=== PATIENT | female | born 1985 | race Caucasian/White ===

== ENCOUNTER → 2018-04-03 | Outpatient (REF) | payer OTHER ==
[2018-04-05 14:15] LABS: HPV HYBRID CAPTURE II Negative (Negative)
== END ==
LOC: M LAB REF 18:24
DX: Z12.4 Encounter for screening for malignant neoplasm of cervix (principal); N76.0 Acute vaginitis
CPT/HCPCS: G0123

== ENCOUNTER 2018-09-21 20:57 | Emergency (ER) | payer BC ==
[~2018-09-21] VITALS: Ht 162.6 cm; Wt 54.5 kg
[2018-09-21 21:51] LABS: BASO % 0.6 % (0.0-1.0); EOS # 0.1 10^3/uL (0.0-0.50); EOS % 1.5 % (0.0-3.0); HEMATOCRIT 36.8 % (36.0-47.0); HEMOGLOBIN 12.7 g/dl (12.0-15.5); LYMPH # 2.1 10^3/uL (1.5-4.5); LYMPH % 30.6 % (24.0-44.0); MEAN CORPUSCULAR HEMOGLOBIN 32.6 pg (27.0-33.0); MEAN CORPUSCULAR HGB CONC 34.5 g/dl (32.0-36.5); MEAN CORPUSCULAR VOLUME 94.6 fl (80.0-96.0); MONO # 0.5 10^3/uL (0.0-0.8); MONO % 7.6 % (0.0-5.0); NEUTROPHILS % 59.4 % (36.0-66.0); PLATELET COUNT, AUTOMATED 225 10^3/uL (150-450); RED BLOOD COUNT 3.89 10^6/uL (4.00-5.40); WHITE BLOOD COUNT 6.7 10^3/uL (4.0-10.0)
--- NOTE | 2018-09-21 23:13 | REPVR ---
EXAM: US First Trimester, Transabdominal EXAM DATE/TIME: 09/21/2018 10:50 PM CLINICAL HISTORY: 32 years old, female; complicated by abdominal or pelvic pain; Left lower quadrant; First trimester; Gestational age or lmp: 08/13/18; ; Additional info: Rlq/r adnexal pain TECHNIQUE: Imaging protocol: Real-time transabdominal obstetrical ultrasound of the maternal pelvis and a first trimester , less than 14 weeks 0 days, with image documentation. COMPARISON: No relevant prior studies available. FINDINGS: GESTATION: Gestation: Gestational sac demonstrated in the uterine fundus with an average sac diameter of 9.1 mm. No pole demonstrated. 2.3 mm yolk sac demonstrated. Heart rate: No cardiac activity demonstrated. Placenta: Unremarkable. No subchorionic bleed. Amniotic fluid: Amniotic and chorionic fluid are normal for gestational age. BIOMETRY: Estimated gestational age: 5 weeks 5 days based on sac size MATERNAL: Uterus: Uterus measures 10.9 x 5.1 x 6.3 cm. Cervix: Unremarkable. Right adnexa: Right ovary measures 3 x 2.3 x 2.6 cm. Corpus luteum in the right ovary measures 1.1 x 0.8 x 1.1 cm. Normal resistive index. Left adnexa: Left ovary obscured by overlying bowel gas. Intraperitoneal: No intraperitoneal free fluid. IMPRESSION: Solitary gestational sac without evidence of a pole or cardiac activity. Gestational age estimated at 5.5 weeks which correlates with LMP. Followup recommended to document the presence of a pole and cardiac activity. Followup beta-hCG levels may be necessary depending upon clinical evaluation. Electronically signed by: Cristian Pop On 09/21/2018 23:13:09 PM
[2018-09-22 00:01] VITALS: BP 104/56
== END 2018-09-22 00:18 | disposition home or self-care (01) ==
LOC: M ED 20:57
DX: O20.0 Threatened abortion (principal); Z3A.01 Less than 8 weeks gestation of pregnancy

== ENCOUNTER → 2018-09-24 | Outpatient (CLI) | payer BC | LOC: M LAB 11:36 | PROVIDERS: ATTEND Obstetrics & Gynecology | DX: O20.0 Threatened abortion (principal); Z3A.00 Weeks of gestation of pregnancy not specified ==

== ENCOUNTER → 2018-09-26 | Outpatient (CLI) | payer BC | LOC: M WUC 18:19 | PROVIDERS: ATTEND Advanced Practice Midwife | DX: O20.0 Threatened abortion (principal) ==

== ENCOUNTER → 2018-12-26 | Outpatient (CLI) | payer BC ==
--- NOTE | 2018-12-26 20:56 | REP ---
Obstetric sonography: History: Supervision of for anatomy. Findings: Scanning through the gravid uterus demonstrates a viable single intrauterine gestation in a cephalic lie. motion is observed and heart rate is recorded at 152 beats per minute. A posterior fundal placenta is seen grade 1 without evidence of previa or abruption. Amniotic fluid is subjectively normal. Closed cervical length measured transvaginally is 2.7 cm. No extrauterine abnormalities observed. Incidental note is made of a 1.4 x 1.3 x 0.5 cm vaginal wall cyst. There are small bilateral choroid plexus cysts. An echogenic focus is seen in the left ventricle likely chordae tendineae. No other abnormality is observed. Facial profile is seen but nose and lips are less than optimally seen due to position. The following additional anatomic structures are identified and felt to be sonographically unremarkable: cranium, cavum, cerebellum and posterior fossa, lungs, left and right ventricular outflow tract views, diaphragm, left-sided stomach, abdominal wall cord insertion, three-vessel umbilical cord, kidneys and bladder, spine, upper and lower extremities. Biometry chart: BPD 4.3 cm = 19 weeks 0 days HC 15.8 cm = 18 weeks 5 days AC 14.3 cm = 19 weeks 4 days FL 2.7 cm = 18 weeks 2 days HL 2.7 cm = 18 weeks 3 days HC/AC ratio normal 1.11. Cephalic index normal 0.76. Estimated weight 268 grams, 0 pounds 9 ounces, 74th percentile for 18 weeks 2 days. Impression: Viable single intrauterine gestation at 18 weeks 6 days by today's composite sonographic criteria. ILDA by today's sonography May 23, 2019. Bilateral small choroid plexus cysts. nose and lips less than optimally seen. Echogenic focus in the left ventricle. Incidental vaginal wall cyst seen during transvaginal scanning of the maternal cervix. Electronically Signed by Chaparro Rodriguez MD 12/26/2018 09:20 P
== END ==
LOC: M RAD 15:57
PROVIDERS: ATTEND Advanced Practice Midwife
DX: Z36.89 Encounter for other specified antenatal screening (principal); Z3A.18 18 weeks gestation of pregnancy

== ENCOUNTER 2019-01-26 19:46 | Emergency (ER) | payer BC ==
[~2019-01-26] VITALS: Ht 162.6 cm; Wt 59.1 kg
[2019-01-26] MEDS ORDERED: NS 1,000 ML IV ONE (20:15)
[2019-01-26 20:38] LABS: BASO % 0.2 % (0.0-1.0); EOS # 0.1 10^3/uL (0.0-0.5); EOS % 0.6 % (0.0-3.0); HEMATOCRIT 35.3 % (36.0-47.0); LYMPH # 1.4 10^3/uL (1.5-5.0); LYMPH % 16.7 % (24.0-44.0); MEAN CORPUSCULAR HEMOGLOBIN 32.7 pg (27.0-33.0); MEAN CORPUSCULAR VOLUME 96.2 fl (80.0-96.0); MONO # 0.5 10^3/uL (0.0-0.8); NEUTROPHILS # 6.4 10^3/uL (1.5-8.5); NEUTROPHILS % 75.8 % (36.0-66.0); PLATELET COUNT, AUTOMATED 217 10^3/uL (150-450); RED BLOOD COUNT 3.67 10^6/uL (4.00-5.40); WHITE BLOOD COUNT 8.4 10^3/uL (4.0-10.0)
[2019-01-26 21:01] LABS: BLOOD UREA NITROGEN 7 MG/DL (7-18); CALCIUM LEVEL 8.6 MG/DL (8.5-10.1); CARBON DIOXIDE LEVEL 23 MEQ/L (21-32); CHLORIDE LEVEL 108 MEQ/L (98-107); CREATININE FOR GFR 0.45 MG/DL (0.55-1.30); GLOMERULAR FILTRATION RATE > 60.0 (>60); GLUCOSE, FASTING 89 MG/DL (70-100); SODIUM LEVEL 140 MEQ/L (136-145)
[2019-01-26 22:00] VITALS: BP 100/66
--- NOTE | 2019-01-27 05:57 | ECGEPIP ---
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
== END 2019-01-26 22:25 | disposition home or self-care (01) ==
LOC: M ED 19:46
DX: O99.89 Other specified diseases and conditions complicating pregnancy, childbirth and the puerperium (principal); R06.09 Other forms of dyspnea; Z3A.23 23 weeks gestation of pregnancy; Z87.59 Personal history of other complications of pregnancy, childbirth and the puerperium

== ENCOUNTER → 2019-01-28 | Outpatient (CLI) | payer BC ==
--- NOTE | 2019-01-29 04:30 | REP ---
Clinical: Anatomical evaluation. Comparison: 12/26/2018 . Findings: Examination demonstrates a single live intrauterine in cephalic presentation. motion is identified by technologist. Placenta is noted posterior and grade zero without evidence for placenta previa or abruption. Amniotic fluid volume is normal. Cervix measures 3.0 cm in length and appears closed. No evidence for nuchal cord. Gestational age by LMP 23 weeks 0 days with ILDA 05/27/2019 . Gestational age by current measurements 24 weeks 3 days with ILDA 05/17/2019 . FHR equals 136 beats per minute. Estimated weight 682 grams ( 88th percentile). Anatomical assessment demonstrates normal structures including cranium, choroid plexus, cavum, cerebellum/posterior fossa, facial features, lungs, cardiac ventricular outflow tracts, diaphragm, stomach, cord insertion/three-vessel cord, kidneys/bladder, spine, and extremities. Four-chamber heart view demonstrates echogenic focus in the left cardiac ventricle suggesting prominent chordae tendineae. Impression: 1. Single live intrauterine in cephalic presentation demonstrating appropriate interval growth. 2. Anatomical assessment is complete and essentially normal as described above. Suspected prominent chordae tendineae in the left cardiac ventricle. Electronically Signed by Jose Ramon Gallagher MD 01/29/2019 04:21 A
== END ==
LOC: M RAD 16:22
PROVIDERS: ATTEND Obstetrics & Gynecology
DX: Z34.82 Encounter for supervision of other normal pregnancy, second trimester (principal); Z3A.23 23 weeks gestation of pregnancy

== ENCOUNTER → 2019-02-20 | Outpatient (CLI) | payer BC ==
[2019-02-20 14:48] LABS: HEMOGLOBIN 11.7 g/dl (12.0-15.5); MEAN CORPUSCULAR HEMOGLOBIN 33.1 pg (27.0-33.0); MEAN CORPUSCULAR HGB CONC 33.4 g/dl (32.0-36.5); MEAN CORPUSCULAR VOLUME 99.2 fl (80.0-96.0); PLATELET COUNT, AUTOMATED 192 10^3/uL (150-450); RED BLOOD COUNT 3.53 10^6/uL (4.00-5.40); WHITE BLOOD COUNT 7.2 10^3/uL (4.0-10.0)
== END ==
LOC: M LAB 13:00
PROVIDERS: ATTEND Obstetrics & Gynecology
DX: Z34.82 Encounter for supervision of other normal pregnancy, second trimester (principal)

== ENCOUNTER → 2019-04-05 | Outpatient (CLI) | payer BC ==
--- NOTE | 2019-04-05 12:01 | REP ---
OB ULTRASOUND: Real-time sonographic evaluation of the gravid uterus is performed utilizing transabdominal and endovaginal technique. There is a single living intrauterine gestation. The estimated gestational age is 32 weeks 4 days, EDC 05/27/2019. Today's measurements indicate appropriate growth. BPD 81 mm = 32 weeks 5 days, 52nd percentile HC 300 mm = 33 weeks 1 day, 59th percentile AC 288 mm = 32 weeks 6 days, 53rd percentile Femur length 62 mm = 32 weeks 1 day, 44th percentile HC/AC ratio 1.04 within normal range. Estimated weight 2020 grams, 45th percentile. Cervix is closed and measures 1.0 cm in length on transvaginal imaging. heart rate 144 beats per minute. Amniotic fluid is mildly oligohydramnios. LUIS is 7.1 below normal range of 8.4-24.4. Biophysical profile score 8 out of 8. S/D ratio 2.17 below normal range of 2.2 to 3.2. RI 0.54 below normal range of 0.59-0.75. Visualized anatomy includes lateral ventricles, four chamber heart, ventricular outflow tracts, stomach, three vessel cord, kidneys, and bladder which are all grossly unremarkable except for an echogenic focus in the left ventricle of the heart likely related to chordae tendineae. position vertex. Placenta posterior and grade 1 with no previa or abruption. Electronically Signed by Marcus Harley MD 04/08/2019 09:13 A
== END ==
LOC: M RAD 09:04
PROVIDERS: ATTEND Obstetrics & Gynecology
DX: O26.843 Uterine size-date discrepancy, third trimester (principal); Z3A.32 32 weeks gestation of pregnancy

== ENCOUNTER → 2019-04-30 | Outpatient (REF) | payer BC | LOC: M SFHCWAGY 12:43 | PROVIDERS: ATTEND Obstetrics & Gynecology | DX: Z34.93 Encounter for supervision of normal pregnancy, unspecified, third trimester (principal); Z36.85 Encounter for antenatal screening for Streptococcus B ==

== ENCOUNTER 2019-05-17 18:20 | Inpatient (IN) | payer BC ==
[~2019-05-17] VITALS: Ht 162.6 cm; Wt 72.1 kg
[2019-05-17 18:39] VITALS: BP 104/61
[2019-05-17] MEDS ORDERED: LACTATED RINGER'S 1000 ML IV STA (19:27)
--- NOTE | 2019-05-17 19:44 | HPEPDOC ---
Obstetrical History & Physical General Date of Admission May 17, 2019 at 19:22 History of Present Illness Chief Complaint: Contractions, term Information Provided By: Patient Age: 33 : 3 Term: 1 Pre-term: 0 Abortions: 1 Livin Care Care: Good Care Dating Final EDC: May 27, 2019 Final EDC by: 1st trimester (US) EGA at Admission: 38 (+2) Antepartum Course Height (inches): 64 Pre- weight (lbs.): 120 Admission Weight (lbs.): 156 Past Medical History Past Obstetrical History : Past Obstetrical History: Primgravida (2011) Type of Delivery: Spontaneous Vaginal Del. 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 BREAST: . ABDOMEN: Gravid and non-tender to touch. FETUS: Is vertex (VTX) by sterile vaginal examination (SVE), fetus is vertex (VTX) by Ren. HEART RATE: Regular rate and rhythm. LUNGS: Clear to auscultation (CTA). EXTREMITIES: No edema. No clonus. Deep tendon reflexes (DTRs) + 2. Vital Signs/I&O Vital Signs Date Time Temp Pulse Resp B/P (MAP) Pulse Ox O2 Delivery O2 Flow Rate FiO2 05/17/19 18:39 97.8 86 104/61 (75) Laboratory Data 24H LABS Laboratory Tests 2 05/17/19 19:28: Serology Scanned Report Hepatitis B Testing Pertinent Laboratoy Data Blood Type: A+ RBC Antibody Screen: Negative HIV: Negative Hepatitis B: Negative Hepatitis C: Negative Rapid Plasma Reagin: Nonreactive Rubella: Immune Chlamydia/Gonorrhea: Negative Group B Streptococcus: Negative Quad Screen Test: Declined Glucose Tolerance Test: 89 Anatomy Ultrasound Ultrasound Date: Dec 26, 2018 Placenta Location: Posterior Normal Anatomy: Yes Placenta Previa: No Estimated Weight (grams): 268 (74%) Other Ultrasounds 10/01/18 Dating 6w0d ILDA 05/27/19 10/16/18 spotting, no subchorionic hemorrhage 01/28/19 f/u anatomy. EFW 682 88%, echogenic cardiac foci, otherwise normal anatomy Steroid Therapy Steroid Therapy: No Vaginal Examination Dilation: 5 cm (-6) Effacement: 90% Station: -1 Cervical Consistency: Soft Cervical Position: Middle Presentation: Cephalic presentation Assessment Heart Rate (FHR): 145 Variability: Moderate Accelerations: Positive Decelerations: None Tocometer Contractions: Yes Frequency: every 3-7 min. Duration: greater than 60 seconds Strength: palpated as moderate Assessment/Plan Assessment Glo is a 33-year-old (G)3 para (P)1-0-1-1 at 38+4 weeks by 6-week ultrasound. Presents to Labor and Delivery (L&D) with complaints of UC since 1500. Denies LOF or bleeding. Fetus is active. 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 Diet: clear liquids. Group B Streptococcus (GBS) negative. Labs and intravenous (IV) per unit protocol. Counseled on Pitocin and induction of labor (IOL). Lactated Ringers (LR): Bolus 500 mL, then at saline lock. Pt plans epidural Anticipate normal spontaneous delivery (). C-S as appropriate. Glo Vanegas CNM May 17, 2019 19:44
[2019-05-17 19:52] VITALS: BP 111/70
[2019-05-17 19:53] LABS: HEMATOCRIT 35.8 % (36.0-47.0); HEMOGLOBIN 11.7 g/dl (12.0-15.5); MEAN CORPUSCULAR HGB CONC 32.7 g/dl (32.0-36.5); PLATELET COUNT, AUTOMATED 212 10^3/uL (150-450); RED BLOOD COUNT 3.77 10^6/uL (4.00-5.40); WHITE BLOOD COUNT 6.1 10^3/uL (4.0-10.0)
[2019-05-17 20:40] VITALS: BP 101/56
[2019-05-17 22:12] VITALS: BP 108/60
[2019-05-18] VITALS (14 sets, daily range): BP systolic 83–123; BP diastolic 50–64
[2019-05-18] MEDS ORDERED: FENTANYL 2MCG/ML ROPIVACAINE 0.2% IN 0.9% NACL 100ML IVBAG As Ordered ONE (00:03)
[2019-05-18] MEDS ORDERED: diphenhydrAMINE INJ 50MG/ML VIAL (J1200) IV PRN (02:15)
[2019-05-18] MEDS ORDERED: EPIDURAL/PCA KEYS XX PRN (02:15)
[2019-05-18] MEDS ORDERED: REFRIGERATOR IV KEYS XX PRN (02:15)
[2019-05-18] MEDS ORDERED: ONDANSETRON 4MG/2ML VIAL (J2405) IV PRN (02:15)
[2019-05-18] MEDS ORDERED: FENTANYL/ROPIVACAINE/NACL BAG 100 ML EPIDURAL SCH (02:15)
[2019-05-18] MEDS ORDERED: NALOXONE INJ 0.4 MG/1 ML VIAL (J2310) IV PRN (02:15)
[2019-05-18] MEDS ORDERED: EPIDURAL COMMENT XX SCH (02:15)
[2019-05-18] MEDS ORDERED: ePHEDrine SULFATE 25 MG/5 ML(5MG/ML) SYRINGE IV PRN (02:15)
--- NOTE | 2019-05-18 02:39 | IPNPDOC ---
Text Note Date of Service The patient was seen on 05/18/19. NOTE Comfortable with epidural UC very irregular, 3-8 minutes apart FH 135, Cat I SVE 6+/90/-1 AROM, moderate clear fluid Pitocin augmentation ordered. VS,Fishbone, I+O VS, Fishbone, I+O Laboratory Tests 05/17/19 19:35 Vital Signs Date Time Temp Pulse Resp B/P (MAP) Pulse Ox O2 Delivery O2 Flow Rate FiO2 05/17/19 19:52 97.8 81 111/70 (84) Glo Vanegas CNM May 18, 2019 02:39
[2019-05-18] MEDS ORDERED: LR 1,000 ML IV SCH (03:00)
[2019-05-18] MEDS ORDERED: OXYTOCIN DRIP 30 UNITS in IV 1 EA IV SCH (03:00)
[2019-05-18] MEDS ORDERED: METHYLERGONOVINE MALEATE 0.2 MG/ML VIAL (J2210) As Ordered ONE (06:23)
--- NOTE | 2019-05-18 06:42 | DNPDOC ---
[facility] Delivery Note Delivery Note DATE OF DELIVERY: 05/18/2019 PREDELIVERY DIAGNOSIS: 38+4/7 weeks' gestation and labor. POST DELIVERY DIAGNOSIS: Delivered. PROCEDURE: Spontaneous vaginal delivery. PROVIDER: Glo Vanegas CNM ANESTHESIA: Epidural. ESTIMATED BLOOD LOSS: 500 mL. FINDINGS: 9 pound 0 ounce, 4080gm male infant, Score 9/9, no nuchal cord. DELIVERY SUMMARY: Patient is a 33-year-old 3 now para 2-0-1-2 who was admitted to labor and delivery for labor. She utilized an epidural for labor coping. AROM 0236 clear fluid and pitocin augmentation provided after epidural placement. Fully dilated 0530. Viable male child delivered [place], restituted to ROP @ 0602. Spontaneous respirations with stimulation. Transitioned on maternal abdomen. Cord doubly clamped and cut once pulsations ceased. Apgars 9/9. Placenta pathak, intact with 3v cord @ 0613. Fundus remained boggy despite massage and IV pitocin bolus. Misoprostol 1000mcg VA and methergine 0.2mg IM given with good control of bleeding. 1st degree perineal laceration repaired with 3-0 vicryl rapide. EBL 500ml. Sponge, sharp and instrument count correct. Glo Vanegas CNM May 18, 2019 06:42
[2019-05-18] MEDS ORDERED: ANUSOL HC CREAM 30GM TOP PRN (06:45)
[2019-05-18] MEDS ORDERED: METHYLERGONOVINE MALEATE 0.2 MG/ML VIAL (J2210) IM ONE (06:45)
[2019-05-18] MEDS ORDERED: ACETAMINOPHEN 500 MG TAB PO PRN (06:45)
[2019-05-18] MEDS ORDERED: ACETAMINOPHEN TAB 650MG DOSE (2X325MG) PO PRN (06:45)
[2019-05-18] MEDS ORDERED: IBUPROFEN 600 MG TAB PO PRN (06:45)
[2019-05-18] MEDS ORDERED: RHOGAM 300 MCG (1500 IU) INJ (J2790) IM SCH (06:45)
[2019-05-18] MEDS ORDERED: MOM 30ML SUSPENSION UDC PO PRN (06:45)
[2019-05-18] MEDS ORDERED: DIBUCAINE 1% OINTMENT 30GM TOP PRN (06:45)
[2019-05-18] MEDS ORDERED: MEASLES,MUMPS,RUBELLA VACCINE INJ (MMR-II) (90707) SC SCH (06:45)
[2019-05-18] MEDS ORDERED: DOCUSATE SODIUM 100 MG CAP PO PRN (06:45)
[2019-05-18] MEDS ORDERED: miSOPROStol 200 MCG TAB (S0191) PR ONE (06:45)
[2019-05-18] MEDS: IBUPROFEN 800 MG TAB PO PRN ×2 (07:36→23:53)
[2019-05-18] MEDS: PRENATAL VITAMINS CHEWABLE TABLET PO SCH (10:01)
[2019-05-18] MEDS: METHYLERGONOVINE MALEATE 0.2 MG TAB PO SCH ×3 (12:08→23:00)
[2019-05-18] MEDS ORDERED: miSOPROStol 100 MCG TAB (S0191) As Ordered ONE (15:57)
[2019-05-19 06:00] VITALS: BP 104/67
[2019-05-19] MEDS: METHYLERGONOVINE MALEATE 0.2 MG TAB PO SCH (06:04)
[2019-05-19] MEDS: PRENATAL VITAMINS CHEWABLE TABLET PO SCH (08:53)
[2019-05-19] MEDS ORDERED: METHYLERGONOVINE MALEATE 0.2 MG TAB PO PRN (12:00)
== END 2019-05-19 19:00 | disposition home or self-care (01) | DRG 560 ==
LOC: M LDO 18:20 → M LDI 19:22 → M OBS 05-18 08:48
PROVIDERS: ADMIT Advanced Practice Midwife; ATTEND Advanced Practice Midwife
PROC: 10E0XZZ Delivery of Products of Conception, External Approach (ICD-10-PCS; principal; 2019-05-18)
PROC: 0HQ9XZZ Repair Perineum Skin, External Approach (ICD-10-PCS; 2019-05-18)
PROC: 10907ZC Drainage of Amniotic Fluid, Therapeutic from Products of Conception, Via Natural or Artificial Opening (ICD-10-PCS; 2019-05-18)
DX: O70.0 First degree perineal laceration during delivery (principal); Z37.0 Single live birth; Z3A.38 38 weeks gestation of pregnancy

== ENCOUNTER → 2019-11-05 | Outpatient (REF) | payer OTHER ==
[2019-11-05 21:03] LABS: CHLAMYDIA DNA AMPLIFICATION NEGATIVE (NEGATIVE); GC DNA AMPLIFICATION NEGATIVE (NEGATIVE)
== END ==
LOC: M SFHCWAGY 16:41
PROVIDERS: ATTEND Advanced Practice Midwife
DX: Z30.430 Encounter for insertion of intrauterine contraceptive device (principal)